=== PATIENT | female | born 1935 | race Two or more races ===

== ENCOUNTER 2018-06-18 09:18 | Day surgery (SDC) | payer MEDICARE, MEDICAID ==
[2018-06-18] VITALS (10 sets, daily range): BP systolic 103–127; BP diastolic 58–70
[~2018-06-18] VITALS: Ht 167.6 cm; Wt 53.1 kg
[2018-06-18] MEDS ORDERED: ASPIR 8181 MG ORAL (10:56)
[2018-06-18] MEDS ORDERED: LEVOTHYROXINE75 MCG ORAL (10:56)
[2018-06-18] MEDS ORDERED: ZIOPTAN 0.00151 EACH OP (10:56)
[2018-06-18] MEDS ORDERED: IRBESARTAN-HCT1 EAC1 ORAL (10:56)
[2018-06-18] MEDS ORDERED: VOLTAREN100 G1 TP (10:56)
[2018-06-18] MEDS ORDERED: LUMIGAN2.5 ML BOTH EYES (10:56)
[2018-06-18] MEDS ORDERED: AVAPRO150 MG ORAL (10:56)
[2018-06-18] MEDS ORDERED: FISH OIL 1,2001 EAC2 PO (10:56)
[2018-06-18] MEDS ORDERED: SIMVASTATIN40 MG ORAL (10:56)
[2018-06-18] MEDS ORDERED: LUNESTA2 MG ORAL (10:56)
[2018-06-18] MEDS ORDERED: CALCITRIOL PO (10:56)
[2018-06-18] MEDS ORDERED: NITROGLYCERIN1 EAC2 TD (10:56)
[2018-06-18] MEDS ORDERED: [UNRECOGNIZED DRUG - OTHER] PO (10:56)
[2018-06-18] MEDS ORDERED: MAGNESIUM OXID400 M1 ORAL (10:56)
[2018-06-18] MEDS ORDERED: VITAMIN D400 INTLU ORAL (10:56)
[2018-06-18] MEDS ORDERED: MYRBETRIQ25 MG PO (10:56)
[2018-06-18] MEDS ORDERED: fentaNYL 100 mcg/2 mL IV ONE (10:59)
[2018-06-18] MEDS ORDERED: Midazolam 2mg/2ml Inj ONE (10:59)
[2018-06-18] MEDS ORDERED: Propofol 200mg/20ml IV ONE (10:59)
[2018-06-18] MEDS ORDERED: NS Irrig 1000ml ONE (11:00)
[2018-06-18] MEDS ORDERED: Bupivacaine 0.5% Inj 30 ml vial INJ ONE (11:00)
[2018-06-18] MEDS ORDERED: Sterile Water Irrig 1000ml IRRIG ONE (11:00)
[2018-06-18] MEDS ORDERED: Dexamethasone 4mg/ml vial ONE (11:00)
[2018-06-18] MEDS ORDERED: Lidocaine 1% Plain 30 ml INJ ONE (11:00)
[2018-06-18] MEDS ORDERED: LR 1000ml ONE (11:00)
--- NOTE | 2018-06-18 11:10 | Pre-Procedure Note/Attestation ---
Pre-Procedure Note/Attestation Complete Prior to Procedure Planned Procedure: right Procedure Narrative: Hammertoe correction third right digit Tenotomy and capsulotomy third right MPJ Indications for Procedure Pre-Operative Diagnosis: Hammertoe deformity third right digit Contracture third right MPJ Attestation I attest that I discussed the nature of the procedure; its benefits; risks and complications; and alternatives (and the risks and benefits of such alternatives ), prior to the procedure, with the patient (or the patient's legal clearance representative). I attest that, if there was a reasonable possibility of needing a blood transfusion, the patient (or the patient's legal clearance representative) was given the [place] [facility] standardized written summary, pursuant to the Pb [place] Blood Safety Act ([place] Health and Safety Code # 1645, as amended). I attest that I re-evaluated the patient just prior to the surgery and that there has been no change in the patient's H&P, except as documented below: Hero Rollins DPM Jun 18, 2018 11:10
[2018-06-18] MEDS ORDERED: NS Irrig 1000ml IRRIG ONE (11:40)
[2018-06-18] MEDS ORDERED: LR 1000ml 1,000 ML IVLG SCH (11:47)
--- NOTE | 2018-06-18 11:47 | Anethesia Preoperative Eval ---
Anesthesia Pre-op PMH/ROS General Date of Evaluation: Jun 18, 2018 Time of Evaluation: 11:05 Anesthesiologist: Tarun ASA Score: ASA 3 Mallampati Score Class I : Soft palate, uvula, fauces, pillars visible Class II: Soft palate, uvula, fauces visible Class III: Soft palate, base of uvula visible Class IV: Only hard plate visible Mallampati Classification: Class II Surgeon: Ayo Diagnosis: R foot 3-rd hummertoe deformity Surgical Procedure: R foot 3-rd hamertoe correction Anesthesia History: none Family History: no anesthesia problems Allergies: Coded Allergies: No Known Allergies (Unverified , 06/17/18) Medications: see eMAR Patient NPO?: Yes Past Medical History Cardiovascular: Reports: HTN; Denies: CAD, MD, valve dz, arrhythmia, other Pulmonary: Denies: asthma, COPD, LEYDI, other Gastrointestinal/Genitourinary: Reports: GERD - mild; Denies: CRI, ESRD, other Neurologic/Psychiatric: Reports: depression/anxiety; Denies: dementia, CVA, TIA, other Endocrine: Reports: hypothyroidism; Denies: DM, steroids, other HEENT: Reports: cataract (L), cataract (R) - s/p Sx Hematology/Immune: Denies: anemia, DVT, bleeding disorder, other Musculoskeletal/Integumentary: Reports: DJD; Denies: OA, RA, DDD, edema, other PMH Narrative: as above PSxH Narrative: podiatry Sx Anesthesia Pre-op Phys. Exam Physician Exam Last Vital Signs Date Time Temp Pulse Resp B/P (MAP) Pulse Ox O2 Delivery O2 Flow Rate FiO2 06/18/18 10:26 97.5 58 20 117/69 96 Room Air 97.5 Constitutional: NAD Neurologic: CN 2-12 intact Cardiovascular: RRR, no M/R/G Respiratory: CTA Gastrointestinal: S/NT/ND Airway Exam Mallampati Score: Class II MO: limited Neck: stiff Teeth: missing Dentures: upper, lower Anesthesia Pre-op A/P Labs see chart Studies Pre-op Studies: EKG - NSR Risk Assessment & Plan Assessment: ASA 3 Plan: MAC with ankle block Status Change Before Surgery: No Pre-Antibiotics Drug: Ancef 1gr. Given Within 1 Hr of Incision: Yes Time Given: 11:25 Roland Mcneil MD Jun 18, 2018 11:46
[2018-06-18] MEDS ORDERED: DiphenhydrAMINE 50mg/ml Inj IVP PRN (12:00)
[2018-06-18] MEDS ORDERED: fentaNYL 100 mcg/2 mL IV PRN (12:00)
[2018-06-18] MEDS ORDERED: Ketorolac 30mg Inj IV PRN (12:00)
--- NOTE | 2018-06-18 12:26 | Brief Operative Note ---
Immediate Post Operative Note Operative Note Pre-op Diagnosis: Hammertoe deformity third right digit Contracture third right MPJ Procedure: Tenotomy and capsulotomy third right MPJ Hammertoe correction third right digit Post-op Diagnosis: same as pre-op plus Surgeon: Ayo Anesthesiologist: Tarun Anesthesia: MAC Specimen: yes Complications: none Condition: stable Fluids: 250 Estimated Blood Loss: none Drains: none Implant(s) used?: Yes Hero Rollins DPM Jun 18, 2018 12:26
--- NOTE | 2018-06-18 12:37 | Immediate Post-Op Evaluation ---
Immediate Post-Op Evalulation Immediate Post-Op Evalulation Procedure: R 3-rd hammertoe correction Date of Evaluation: Jun 18, 2018 Time of Evaluation: 12:36 IV Fluids: 500 Blood Products: [id number] Estimated Blood Loss: min Urinary Output: none Blood Pressure Systolic: 103 Blood Pressure Diastolic: 58 Pulse Rate: 56 Respiratory Rate: 20 O2 Sat by Pulse Oximetry: 99 Temperature (Fahrenheit): 97.6 Pain Score (1-10): 1 Nausea: No Vomiting: No Complications none Patient Status: awake, patent, none Hydration Status: adequate Roland Mcneil MD Jun 18, 2018 12:37
--- NOTE | 2018-06-18 13:03 | 48 Hour Post Anesthesia Eval ---
Post Anesthesia Evaluation Procedure: R 3-rd hammertoe correction Date of Evaluation: Jun 18, 2018 Time of Evaluation: 13:01 Blood Pressure Systolic: 116 0: 76 Pulse Rate: 64 Respiratory Rate: 20 Temperature (Fahrenheit): 97.6 O2 Sat by Pulse Oximetry: 98 Airway: patent Nausea: No Vomiting: No Hydration Status: adequate Cardiopulmonary Status: stable Mental Status/LOC: patient returned to baseline Follow-up Care/Observations: n/a Post-Anesthesia Complications: none Follow-up care needed: ready to discharge Roland Mcneil MD Jun 18, 2018 13:03
--- NOTE | 2018-06-18 16:51 | Diagnostic Imaging Report ---
Indication: Postoperative, status post foot surgery Technique: 3 views right foot Comparison: none Findings: Patient is status post osteotomy of the head of the third proximal phalanx and base of the third middle phalanx, with surgical fusion with a screw. There is also evidence of prior bunionectomy and possible first metatarsal neck and first proximal phalangeal base osteotomy. There are degenerative changes of the first metatarsophalangeal joint. No acute fractures. No dislocations. Mild hammertoe deformity of the second digit noted. There are small plantar and calcaneal spurs Impression: Postsurgical changes of the right foot, as described
--- NOTE | 2018-06-19 00:15 | History and Physical Report ---
DATE OF ADMISSION: 06/18/2018 HISTORY OF PRESENT ILLNESS: This is an 82-year-old white female that is admitted today for an outpatient hammertoe correction of her third right digit. The patient has been under my care for many years for multiple bilateral foot deformities. She underwent bilateral bunionectomies in 2003 and 2005. The patient has been experiencing pain from her third digit and inability to wear closed shoes from third right toe. She indicated that she tried modifying her shoes, used padding, and did not succeed in alleviating the pain. The patient was recently consulted on correction of the deformity. PAST MEDICAL HISTORY: Remarkable for hypertensive heart disease, hyperlipidemia, atherosclerosis, osteoarthritis, osteoporosis, renal cyst, depression, and glaucoma. MEDICATIONS: Diovan, Avapro, Avalide, nitroglycerin, aspirin, lisinopril, levothyroxine, simvastatin, and Dexilant. ALLERGIES: No known drug allergies. PODIATRIC PHYSICAL EXAMINATION: VASCULAR: Dorsalis pedis and posterior tibial arteries are measuring 1/4 bilaterally. The capillary refilling time is less than 5 seconds to all digits bilaterally. Homans sign is negative. Bilateral lower extremity varicosities are present. NEUROLOGICAL: The reflexes, Achilles and patellar are intact measuring 1/4 bilaterally. Sensation, proprioception, and vibration are all intact bilateral lower extremities. The Babinski is negative and clonus is absent bilateral lower extremities. MUSCULOSKELETAL: Bilateral nonreducible hammertoe deformities digits 2 through 5. There is contracture of the third metatarsophalangeal joint on the right. Joint range of motion is reduced to the forefoot and rearfoot bilaterally. Mild crepitation is noted. DERMATOLOGICAL: Scar from previous surgeries. All nails are present and dystrophic bilaterally. Dorsal preulcerative hyperkeratotic skin is present over the dorsal aspect of the proximal interphalangeal joint of the third right digit. No other skin lesions are present. ASSESSMENT: 1. Hammertoe deformity. 2. Contracture third right metatarsophalangeal joint. PLAN: The patient is admitted for correction of the hammertoe deformity. The risks, complications, and alternatives were discussed with the patient. Postoperative instructions were given. Postoperative medications were dispensed. The patient elected to proceed with surgery. eHro Rollins D.P.M. DR: JEFERSON JOB#: [id number] CC:
--- NOTE | 2018-06-19 01:15 | Operative Note - Dictated ---
DATE OF OPERATION: 06/18/2018 PREOPERATIVE DIAGNOSES: 1. Hammertoe deformity third right digit. 2. Contracture third right metatarsophalangeal joint. POSTOPERATIVE DIAGNOSES: 1. Hammertoe deformity third right digit. 2. Contracture third right metatarsophalangeal joint. PROCEDURE PERFORMED: 1. Hammertoe correction with fusion of the third right proximal interphalangeal joint utilizing a ToeMATE implant. 2. Tenotomy and capsulotomy, third right metatarsophalangeal joint. SURGEON: Hero Rollins D.P.M. ANESTHESIOLOGIST: Roland Mcneil M.D. ANESTHESIA: Local standby. DESCRIPTION OF THE OPERATION: The patient was brought to the operating room and was placed on the operating room table in the supine position. IV sedation was administered by the anesthesiologist. Local anesthesia consisting of 0.5% Marcaine plain total of 10 mL was administered to the right foot. An ankle tourniquet was applied to the right lower extremity. The foot was prepped and draped in the usual sterile manner. An Esmarch bandage was then utilized to exsanguinate the blood and the right ankle tourniquet was inflated to 250 mmHg. Attention was directed to the third digit where an approximately 5 to 6 cm dorsal linear skin incision was performed centered over the proximal phalanx. The incision was deepened utilizing sharp and blunt dissection with care being taken to cauterize and ligate all bleeders. At the level of the third metatarsophalangeal joint, a transverse tenotomy was performed and the extensor tendon was reflected proximally. The capsule was then transected utilizing a McGlamry scoop. The bone and capsules were detached from all the soft tissue attachments and the digit was brought into a rectus position. The wound was copiously flushed utilizing sterile saline. Attention was then directed to the proximal interphalangeal joint where dissection was carried down to the level of the joint with care being taken to cauterize and ligate all bleeders. At the level of the joint, a transverse tenotomy was performed. The head of the proximal phalanx was then exposed and the collateral ligaments were severed. Utilizing a sagittal saw, the head of the proximal phalanx was resected in total. The remaining bone was rasped smooth. The wound was then flushed utilizing sterile saline. At this point, the cartilage from the base of the intermediate phalanx was resected in total. A ToeMATE type of implant was then inserted in order to align the digit in a 10-degree angle. At this point, the wound was copiously flushed utilizing sterile saline. The extensor tendon was reapproximated distally with 4-0 Vicryl utilizing simple interrupted type stitch. At this point, the subcutaneous tissue was reapproximated at the level of the fifth metatarsophalangeal joint utilizing buried knot type stitch. The skin was then reapproximated utilizing 4-0 nylon in a simple interrupted type stitch. The wound was dressed utilizing an Adaptic, 4 x 4 gauze, and 3 inch Leeanne. The right ankle tourniquet was deflated and vascular supply was noted to all digits right foot. The patient tolerated the procedure well and left the operating room to recovery room with all vital signs stable. Hero Rollins D.P.M. DR: JEFERSON JOB#: [id number] CC:
== END 2018-06-18 14:20 | disposition home or self-care (01) ==
LOC: SUR 09:18 → EDUNIT# 11:00 → SUR 14:20
DX: M20.41 Other hammer toe(s) (acquired), right foot (principal); M20.5X1 Other deformities of toe(s) (acquired), right foot; I11.9 Hypertensive heart disease without heart failure; E78.5 Hyperlipidemia, unspecified; M19.90 Unspecified osteoarthritis, unspecified site; N28.1 Cyst of kidney, acquired; F32.9 Major depressive disorder, single episode, unspecified; F41.9 Anxiety disorder, unspecified; H40.9 Unspecified glaucoma; H26.9 Unspecified cataract; K21.9 Gastro-esophageal reflux disease without esophagitis; E03.9 Hypothyroidism, unspecified; Z79.82 Long term (current) use of aspirin; Z82.3 Family history of stroke; Z90.49 Acquired absence of other specified parts of digestive tract
CPT/HCPCS: 28285; 73630; J0690; J1100; J2250; J2704; J3010; J3490; 94003; 94150